=== PATIENT | female | born 1935 | race Caucasian/White ===

== ENCOUNTER 2017-05-06 15:07 | Inpatient (IN) | payer MEDICARE, BC ==
[~2017-05-06] VITALS: Ht 170.2 cm; Wt 78.2 kg
[~2017-05-06 15:07] MED LIST: ALBU8.5H3 INH; ANAS1TAB PO; ATOR20TA9 PO; BRIM5DRO3 EACHEYE; CEFD300C37 PO; CYAN10008 PO; DORZ10DR7 EACHEYE; DULERA INH; ESTA1TAB PO; EYE EACHEYE; FLUTICASONE INH; HYDR-3240 PO; HYDROCODONE PO; LACT1CAP40 PO; LATA2.5D3 EACHEYE; LEVO112T4 PO; LEVO25TA2 PO; LISI-167 PO; LORA10TA3 PO; METF10002 PO; MONT10TA9 PO; NITR50CA PO; ONDA4TAB7 PO; PREDNISOLONE EACHEYE; TIOT18CA INH; TIZA4CAP2 PO
[2017-05-06] MEDS ORDERED: SODIUM CHLORIDE FLUSH 10ML SYR IVF ONE (15:30)
[2017-05-06] MEDS ORDERED: SODIUM CHLORIDE 0.9% 1,000ML IVBOLUS ONE (15:30)
[2017-05-06] MEDS ORDERED: ALBUTEROL/IPRATROPIUM 2.5MG/0.5MG, 3 ML NPPB ONE (15:30)
[2017-05-06] MEDS ORDERED: HYDROcodone/APAP 5/325 TABLET PO ONE (16:00)
[2017-05-06] MEDS ORDERED: ALBUTEROL/IPRATROPIUM 2.5MG/0.5MG, 3 ML ONE (16:03)
[2017-05-06 16:04] LABS: ASPARTATE AMINO TRANSFERASE 19 U/L (15-37); BLOOD UREA NITROGEN 14 mg/dL (7-18)
[2017-05-06 16:10] LABS: IS PT STATUS REG ER OR PRE ER? YES
[2017-05-06] MEDS ORDERED: HYDROcodone/APAP 5/325 TABLET ONE (16:25)
[2017-05-06] MEDS ORDERED: ALBUTEROL SULFATE 2.5 MG/3 ML NPPB PRN (18:30)
[2017-05-06] MEDS ORDERED: methylPREDNISolone SOD SUCC 125 MG/2 ML IVPush ONE (18:30)
[2017-05-06] MEDS: methylPREDNISolone SOD SUCC 125 MG/2 ML IVPush SCH (18:30)
[2017-05-06] MEDS ORDERED: ASPIRIN 81 MG TABLET CHEW PO ONE (18:30)
[2017-05-06] MEDS ORDERED: NITROGLYCERIN 0.4 MG BOTTLE (25 TABS) SL PRN (19:00)
[2017-05-06] MEDS ORDERED: morphine SULFATE 10 MG/ML, 1ML IVPush PRN (19:00)
[2017-05-06] MEDS ORDERED: BISACODYL 10 MG SUPP PR PRN (19:00)
[2017-05-06] MEDS ORDERED: POLYETHYLENE GLYCOL 17 GM PACKET PO PRN (19:00)
[2017-05-06] MEDS ORDERED: ACETAMINOPHEN 325 MG TABLET PO PRN (19:00)
[2017-05-06] MEDS: ONDANSETRON 2MG/ML, 2ML IVPush PRN (20:21)
[2017-05-06] MEDS: AZITHROMYCIN 500 MG in SODIUM CHLORIDE 0.9% 250 ML IV SCH (20:43)
[2017-05-06] MEDS ORDERED: TEMPLATE NON-FORMULARY MED. (Dorzolamide Hcl/Timolol Maleat (Dorzolamide-Timolol Eye Drops EACHEYE SCH (21:00)
[2017-05-06] MEDS: LATANOPROST OPHTH 0.005%, 2.5ML EACHEYE SCH (21:00)
[2017-05-06] MEDS ORDERED: TEMPLATE NON-FORMULARY MED. (Brimonidine Tartrate** (Alphagan P**) 1 DROP(S)) EACHEYE SCH (21:00)
[2017-05-06 21:50] LABS: IS PT STATUS REG ER OR PRE ER? NO
[2017-05-06] MEDS: ATORVASTATIN 20 MG TABLET PO SCH (23:25)
[2017-05-06] MEDS: HEPARIN 5,000 UNITS/ML, 1ML SQ SCH (23:25)
[2017-05-06] MEDS: SODIUM CHLORIDE FLUSH 10ML SYR IVF SCH (23:26)
[2017-05-06 23:42] VITALS: BP 147/84
[2017-05-07] MEDS: ALBUTEROL/IPRATROPIUM 2.5MG/0.5MG, 3 ML NPPB SCH ×4 (00:15→20:50)
[2017-05-07 03:40] VITALS: BP 122/73
[2017-05-07 03:51] LABS: ASPARTATE AMINO TRANSFERASE 15 U/L (15-37); BLOOD UREA NITROGEN 12 mg/dL (7-18)
[2017-05-07 03:56] LABS: IS PT STATUS REG ER OR PRE ER? NO
[2017-05-07 08:51] VITALS: BP 142/77
[2017-05-07] MEDS ORDERED: REGADENOSON 0.4 MG/5 ML SYRINGE ONE (08:56)
[2017-05-07] MEDS ORDERED: IPRATROPIUM 0.5 MG/2.5 ML INHA NPPB SCH (09:00)
[2017-05-07] MEDS ORDERED: HYDROcodone/APAP 5/325 TABLET ONE (10:41)
[2017-05-07] MEDS: HEPARIN 5,000 UNITS/ML, 1ML SQ SCH ×2 (10:44→19:53)
[2017-05-07] MEDS: methylPREDNISolone SOD SUCC 125 MG/2 ML IVPush SCH ×2 (10:45→19:53)
[2017-05-07] MEDS: HYDROcodone/APAP 5/325 TABLET PO PRN ×2 (10:45→14:16)
[2017-05-07] MEDS: MONTELUKAST 10 MG TABLET PO SCH (10:45)
[2017-05-07] MEDS: LEVOTHYROXINE 112 MCG TABLET PO SCH (10:45)
[2017-05-07] MEDS: CYANOCOBALAMIN 1,000 MCG TABLET PO SCH (10:45)
[2017-05-07] MEDS: SENNA/DOCUSATE TABLET PO SCH (10:46)
[2017-05-07] MEDS: LISINOPRIL 10 MG TABLET PO SCH (10:46)
[2017-05-07] MEDS: NITROFURANTOIN 50 MG CAPSULE PO SCH (10:46)
[2017-05-07] MEDS: LORATADINE 10 MG TABLET PO SCH (10:46)
[2017-05-07] MEDS: ANASTROZOLE 1 MG TABLET PO SCH (10:49)
[2017-05-07] MEDS: ONDANSETRON 2MG/ML, 2ML IVPush PRN ×2 (10:56→19:11)
[2017-05-07] MEDS: SODIUM CHLORIDE FLUSH 10ML SYR IVF SCH ×2 (11:03→19:54)
[2017-05-07] MEDS: DULERA INH SCH (11:13)
[2017-05-07] MEDS: (Dorzolamide Hcl/Timolol Maleat (Dorzolamide-Timolol Eye Drops EACHEYE SCH ×2 (11:13→20:11)
[2017-05-07] MEDS: (Brimonidine Tartrate** (Alphagan P**) 1 DROP(S)) EACHEYE SCH ×2 (11:13→20:11)
[2017-05-07 14:27] VITALS: BP 108/64
[2017-05-07 18:51] VITALS: BP 142/79
[2017-05-07] MEDS: AZITHROMYCIN 500 MG in SODIUM CHLORIDE 0.9% 250 ML IV SCH (19:54)
[2017-05-07] MEDS: ATORVASTATIN 20 MG TABLET PO SCH (19:54)
[2017-05-07] MEDS: LATANOPROST OPHTH 0.005%, 2.5ML EACHEYE SCH (20:12)
[2017-05-07] MEDS ORDERED: DIPHENHYDRAMINE 25 MG CAPSULE PO PRN (22:30)
[2017-05-08] VITALS (7 sets, daily range): BP systolic 102–151; BP diastolic 61–78
[2017-05-08] MEDS: ONDANSETRON 2MG/ML, 2ML IVPush PRN ×2 (05:22→19:28)
[2017-05-08] MEDS: methylPREDNISolone SOD SUCC 125 MG/2 ML IVPush SCH (05:22)
[2017-05-08] MEDS: HEPARIN 5,000 UNITS/ML, 1ML SQ SCH ×3 (05:22→20:49)
[2017-05-08] MEDS: HYDROcodone/APAP 5/325 TABLET PO PRN ×2 (05:45→16:40)
[2017-05-08] MEDS: ALBUTEROL/IPRATROPIUM 2.5MG/0.5MG, 3 ML NPPB SCH ×3 (07:32→21:00)
[2017-05-08] MEDS ORDERED: KETOROLAC 30 MG/1 ML IVPush ONE (08:30)
[2017-05-08] MEDS ORDERED: METHOCARBAMOL 500 MG TABLET PO ONE (08:30)
[2017-05-08] MEDS: DULERA INH SCH (09:00)
[2017-05-08] MEDS: SENNA/DOCUSATE TABLET PO SCH (09:00)
[2017-05-08] MEDS: (Brimonidine Tartrate** (Alphagan P**) 1 DROP(S)) EACHEYE SCH ×2 (09:00→20:50)
[2017-05-08] MEDS: LEVOTHYROXINE 112 MCG TABLET PO SCH (10:44)
[2017-05-08] MEDS: CYANOCOBALAMIN 1,000 MCG TABLET PO SCH (10:44)
[2017-05-08] MEDS: LORATADINE 10 MG TABLET PO SCH (10:44)
[2017-05-08] MEDS: MONTELUKAST 10 MG TABLET PO SCH (10:45)
[2017-05-08] MEDS: SODIUM CHLORIDE FLUSH 10ML SYR IVF SCH ×2 (10:45→20:50)
[2017-05-08] MEDS: LISINOPRIL 10 MG TABLET PO SCH (10:45)
[2017-05-08] MEDS: NITROFURANTOIN 50 MG CAPSULE PO SCH (10:46)
[2017-05-08] MEDS: ANASTROZOLE 1 MG TABLET PO SCH (10:57)
[2017-05-08] MEDS: (Dorzolamide Hcl/Timolol Maleat (Dorzolamide-Timolol Eye Drops EACHEYE SCH ×2 (11:51→20:48)
[2017-05-08] MEDS: METHOCARBAMOL 750 MG TABLET PO PRN (19:38)
[2017-05-08] MEDS: AZITHROMYCIN 500 MG in SODIUM CHLORIDE 0.9% 250 ML IV SCH (20:48)
[2017-05-08] MEDS: LATANOPROST OPHTH 0.005%, 2.5ML EACHEYE SCH (20:49)
[2017-05-08] MEDS: ATORVASTATIN 20 MG TABLET PO SCH (20:49)
[2017-05-09 00:48] VITALS: BP 137/76
[2017-05-09] MEDS ORDERED: PNEUMOCOCCAL 23 VACCINE IM-VACC ONE (04:00)
[2017-05-09] MEDS: HEPARIN 5,000 UNITS/ML, 1ML SQ SCH ×2 (06:21→14:12)
[2017-05-09] MEDS: ALBUTEROL/IPRATROPIUM 2.5MG/0.5MG, 3 ML NPPB SCH (07:33)
[2017-05-09 07:58] VITALS: BP 169/96
[2017-05-09] MEDS: HYDROcodone/APAP 5/325 TABLET PO PRN (08:29)
[2017-05-09] MEDS: (Dorzolamide Hcl/Timolol Maleat (Dorzolamide-Timolol Eye Drops EACHEYE SCH (08:31)
[2017-05-09] MEDS: SODIUM CHLORIDE FLUSH 10ML SYR IVF SCH (08:33)
[2017-05-09] MEDS: DULERA INH SCH (08:33)
[2017-05-09] MEDS: MONTELUKAST 10 MG TABLET PO SCH (09:00)
[2017-05-09] MEDS: ANASTROZOLE 1 MG TABLET PO SCH ×2 (09:00→11:46)
[2017-05-09] MEDS: (Brimonidine Tartrate** (Alphagan P**) 1 DROP(S)) EACHEYE SCH (09:00)
[2017-05-09] MEDS: NITROFURANTOIN 50 MG CAPSULE PO SCH ×2 (09:00→11:46)
[2017-05-09] MEDS: LORATADINE 10 MG TABLET PO SCH (09:00)
[2017-05-09] MEDS: CYANOCOBALAMIN 1,000 MCG TABLET PO SCH (09:00)
[2017-05-09] MEDS: LISINOPRIL 10 MG TABLET PO SCH (09:00)
[2017-05-09] MEDS: LEVOTHYROXINE 112 MCG TABLET PO SCH (09:00)
[2017-05-09] MEDS: SENNA/DOCUSATE TABLET PO SCH (09:00)
[2017-05-09] MEDS: METHOCARBAMOL 750 MG TABLET PO PRN (12:08)
[2017-05-09 12:11] VITALS: BP 149/78
[2017-05-09] MEDS ORDERED: METH750T2 PO (13:57)
[2017-05-09] MEDS ORDERED: PRED10TA PO (13:57)
== END 2017-05-09 16:15 | disposition home or self-care (01) | DRG 190 ==
LOC: ED 15:51 → EDIP 17:14 → 5SO 19:04
PROVIDERS: ADMIT Internal Medicine; ATTEND Internal Medicine
DX: J44.1 Chronic obstructive pulmonary disease with (acute) exacerbation (principal); J18.9 Pneumonia, unspecified organism; J96.10 Chronic respiratory failure, unspecified whether with hypoxia or hypercapnia; H40.9 Unspecified glaucoma; E11.9 Type 2 diabetes mellitus without complications; E03.9 Hypothyroidism, unspecified; I10 Essential (primary) hypertension; I89.0 Lymphedema, not elsewhere classified; G56.03 Carpal tunnel syndrome, bilateral upper limbs; H53.8 Other visual disturbances; Z66 Do not resuscitate; Z79.84 Long term (current) use of oral hypoglycemic drugs; Z85.3 Personal history of malignant neoplasm of breast; Z90.13 Acquired absence of bilateral breasts and nipples; Z92.21 Personal history of antineoplastic chemotherapy; Z92.3 Personal history of irradiation; Z99.81 Dependence on supplemental oxygen; Z90.12 Acquired absence of left breast and nipple; Z90.710 Acquired absence of both cervix and uterus; Z90.49 Acquired absence of other specified parts of digestive tract; Z88.0 Allergy status to penicillin; R07.89 Other chest pain
CPT/HCPCS: 36415; 70450; 71010; 78452; 80053; 81003; 83036; 83880; 84484; 85025; 85379; 87205; 90732; 93005; 93017; 93970; 94640; 96360; J0456; J1644; J1885; J2405; J2785; J7620; A9502; C9898; J2270; J2930; J7030; J7050; J7512; Q0163

== ENCOUNTER 2018-06-29 16:18 | Inpatient (IN) | payer MEDICARE, BC ==
[~2018-06-29] VITALS: Ht 165.1 cm; Wt 68.0 kg
[~2018-06-29 16:18] MED LIST changes: -ALBU8.5H3 INH; +ALBU8.5H8 INH; +CHOL10003 PO; +CIPRO EYE; +COLE1TAB5 PO; +CYAN100072 PO; -CYAN10008 PO; +DORZOLAMIDE HCL; +LEVO125T5 PO; +LINA5TAB PO; +METH750T2 PO; +MOME13HF2 INH; +PRED10TA PO; +PREDNISOLONE
[2018-06-29] MEDS ORDERED: SODIUM CHLORIDE 0.9% 1,000 ML IV ONE (16:29)
[2018-06-29] MEDS ORDERED: SODIUM CHLORIDE FLUSH 10ML SYR IVF ONE (16:30)
[2018-06-29] MEDS ORDERED: ALBUTEROL/IPRATROPIUM 2.5MG/0.5MG, 3 ML NPPB ONE (16:30)
[2018-06-29 16:49] LABS: BASOPHILS # (AUTO) 0.04 x10^3/uL (0-0.1); BASOPHILS % (AUTO) 1 % (0-1); EOSINOPHILS # (AUTO) 0.04 x10^3/uL (0-0.4); EOSINOPHILS % (AUTO) 1 % (1-7); LYMPHOCYTES # (AUTO) 1.32 x10^3/uL (1-3.4); LYMPHOCYTES % (AUTO) 18 % (22-44); MD NO; MEAN CORPUSCULAR HEMOGLOBIN 29.4 pg (27.0-34.8); MEAN CORPUSCULAR HGB CONC 32.7 g/dL (32.4-35.8); MEAN PLATELET VOLUME 6.4 fL (7.4-10.4); MONOCYTES # (AUTO) 0.81 x10^3/uL (0.2-0.8); MONOCYTES % (AUTO) 11 % (2-9); NEUTROPHILS # (AUTO) 5.26 x10^3/uL (1.8-6.8); NEUTROPHILS % (AUTO) 70 % (42-75); PLATELET COUNT 276 x10^3/uL (130-400); RED BLOOD COUNT 3.87 x10^6/uL (3.82-5.3); RED CELL DISTRIBUTION WIDTH 13.9 % (9.6-15.2)
[2018-06-29] MEDS ORDERED: [UNRECOGNIZED DRUG - OTHER] INH (16:51)
[2018-06-29 17:02] LABS: ALANINE AMINOTRANSFERASE 17 U/L (12-78); ALBUMIN 3.5 g/dL (3.4-5.0); ANION GAP 6 mmol/L (5-15); CALCIUM 9.1 mg/dL (8.5-10.1); CHLORIDE 98 mmol/L (98-107)
[2018-06-29 17:06] LABS: ALKALINE PHOSPHATASE 82 U/L (45-117); BILIRUBIN,TOTAL 0.3 mg/dL (0.2-1.0); TOTAL PROTEIN 8.1 g/dL (6.4-8.2); TROPONIN I < 0.015 ng/mL (0.000-0.045)
[2018-06-29] MEDS ORDERED: OMNIPAQUE 350 MG/ML, 100ML BOTTLE ONE (17:10)
[2018-06-29 20:04] VITALS: BP 201/101
[2018-06-29 20:16] VITALS: BP 201/93
[2018-06-29] MEDS ORDERED: LABETALOL 5MG/ML, 20ML ONE (20:29)
[2018-06-29 20:30] VITALS: BP 188/90
[2018-06-29] MEDS ORDERED: ALBUTEROL SULFATE 2.5MG/0.5ML NPPB PRN (20:30)
[2018-06-29 20:36] LABS: INTERNATIONAL NORMALIZED RATIO 1.08 (0.93-1.1); PROTHROMBIN TIME 11.1 Seconds (9.6-11.5)
[2018-06-29 20:48] VITALS: BP 166/94
[2018-06-29 20:49] VITALS: BP 130/78
[2018-06-29] MEDS ORDERED: ENALAPRILAT 1.25 MG/ML, 2ML IVPush PRN (21:00)
[2018-06-29] MEDS ORDERED: LABETALOL 5MG/ML, 20ML IVPush ONE (21:00)
[2018-06-29] MEDS ORDERED: LABETALOL 5MG/ML, 20ML IVPush PRN (21:00)
[2018-06-29] MEDS ORDERED: ONDANSETRON 2MG/ML, 2ML IVPush PRN (21:00)
[2018-06-29] MEDS: ENOXAPARIN 30 MG/0.3 ML SQ SCH (21:00)
[2018-06-29] MEDS ORDERED: FUROSEMIDE 20 MG/2 ML IV ONE (23:00)
[2018-06-29] MEDS ORDERED: POTASSIUM CHLORIDE 20 MEQ TAB.ER.PRT PO ONE (23:00)
[2018-06-29] MEDS: ATORVASTATIN 20 MG TABLET PO SCH (23:15)
[2018-06-30] MEDS: LORazepam 2 MG/ML, 1ML IVPush PRN ×4 (00:48→21:20)
[2018-06-30 02:42] VITALS: BP 103/80
[2018-06-30 05:05] LABS: BASOPHILS # (AUTO) 0.04 x10^3/uL (0-0.1); BASOPHILS % (AUTO) 1 % (0-1); EOSINOPHILS # (AUTO) 0.01 x10^3/uL (0-0.4); EOSINOPHILS % (AUTO) 0 % (1-7); LYMPHOCYTES # (AUTO) 1.13 x10^3/uL (1-3.4); LYMPHOCYTES % (AUTO) 16 % (22-44); MD NO; MEAN CORPUSCULAR HEMOGLOBIN 29.9 pg (27.0-34.8); MEAN CORPUSCULAR HGB CONC 32.9 g/dL (32.4-35.8); MEAN CORPUSCULAR VOLUME 90.8 fL (80-100); MEAN PLATELET VOLUME 6.8 fL (7.4-10.4); MONOCYTES # (AUTO) 0.78 x10^3/uL (0.2-0.8); MONOCYTES % (AUTO) 11 % (2-9); NEUTROPHILS # (AUTO) 5.21 x10^3/uL (1.8-6.8); NEUTROPHILS % (AUTO) 73 % (42-75); PLATELET COUNT 257 x10^3/uL (130-400); RED BLOOD COUNT 3.74 x10^6/uL (3.82-5.3)
[2018-06-30 05:13] LABS: ANION GAP 4 mmol/L (5-15); CALCIUM 8.8 mg/dL (8.5-10.1); CHLORIDE 101 mmol/L (98-107)
[2018-06-30] MEDS: LEVOTHYROXINE 125 MCG TABLET PO SCH (05:57)
[2018-06-30 07:30] VITALS: BP 120/79
[2018-06-30] MEDS ORDERED: LIDOCAINE-MPF 2%, 2ML ONE (09:24)
[2018-06-30] MEDS: IPRATROPIUM 0.5 MG/2.5 ML INHA NPPB SCH ×2 (09:35→16:15)
[2018-06-30] MEDS ORDERED: ALBUTEROL/IPRATROPIUM 2.5MG/0.5MG, 3 ML ONE (09:35)
[2018-06-30] MEDS: ENOXAPARIN 30 MG/0.3 ML SQ SCH ×2 (12:26→21:08)
[2018-06-30] MEDS: CYANOCOBALAMIN 1,000 MCG TABLET PO SCH (12:27)
[2018-06-30] MEDS: LISINOPRIL 10 MG TABLET PO SCH (12:27)
[2018-06-30] MEDS: MONTELUKAST 10 MG TABLET PO SCH (12:27)
[2018-06-30] MEDS: LINAGLIPTIN 5 MG TAB PO SCH (12:27)
[2018-06-30] MEDS: CHOLECALCIFEROL 1,000 UNIT TABLET PO SCH (12:27)
[2018-06-30 14:00] VITALS: BP 120/72
[2018-06-30] MEDS: FLUTICASONE/VILANTEROL 200-25MCG/INH INH SCH (14:59)
[2018-06-30] MEDS: HYDROcodone/APAP 5/325 TABLET PO PRN (15:26)
[2018-06-30] MEDS: ONDANSETRON ODT 4 MG PO PRN (16:46)
[2018-06-30 17:00] VITALS: BP 117/74
[2018-06-30] MEDS ORDERED: morphine SULFATE/PF 0.5 MG/ML, 10ML IV PRN (17:30)
[2018-06-30] MEDS: ALBUTEROL/IPRATROPIUM 2.5MG/0.5MG, 3 ML NPPB SCH (18:13)
[2018-06-30] MEDS ORDERED: methylPREDNISolone SOD SUCC 125 MG/2 ML IVPush SCH (20:00)
[2018-06-30] MEDS: ATORVASTATIN 20 MG TABLET PO SCH (21:07)
[2018-07-01 04:00] VITALS: BP 110/53
[2018-07-01] MEDS: LEVOTHYROXINE 125 MCG TABLET PO SCH (05:40)
[2018-07-01] MEDS: ALBUTEROL/IPRATROPIUM 2.5MG/0.5MG, 3 ML NPPB SCH ×5 (06:58→23:00)
[2018-07-01] MEDS ORDERED: methylPREDNISolone SOD SUCC 125 MG/2 ML IVPush SCH (08:00)
[2018-07-01] MEDS: CHOLECALCIFEROL 1,000 UNIT TABLET PO SCH (08:48)
[2018-07-01] MEDS: MONTELUKAST 10 MG TABLET PO SCH (08:49)
[2018-07-01] MEDS: FLUTICASONE/VILANTEROL 200-25MCG/INH INH SCH (08:49)
[2018-07-01] MEDS: LISINOPRIL 10 MG TABLET PO SCH (08:49)
[2018-07-01] MEDS: CYANOCOBALAMIN 1,000 MCG TABLET PO SCH (08:49)
[2018-07-01] MEDS: LINAGLIPTIN 5 MG TAB PO SCH (08:49)
[2018-07-01] MEDS: ENOXAPARIN 30 MG/0.3 ML SQ SCH ×2 (08:50→20:33)
[2018-07-01] MEDS ORDERED: OMNIPAQUE 350 MG/ML, 100ML BOTTLE ONE (11:07)
[2018-07-01] MEDS: HYDROcodone/APAP 5/325 TABLET PO PRN (12:00)
[2018-07-01] MEDS: LORazepam 2 MG/ML, 1ML IVPush PRN (16:49)
[2018-07-01] MEDS: ATORVASTATIN 20 MG TABLET PO SCH (20:33)
[2018-07-02] MEDS: HYDROcodone/APAP 5/325 TABLET PO PRN ×3 (04:03→15:16)
[2018-07-02] MEDS: MORPHINE SULFATE 4 MG/ML, 1ML IVPush PRN ×3 (04:07→14:23)
[2018-07-02 04:46] VITALS: BP 126/51
[2018-07-02] MEDS: LEVOTHYROXINE 125 MCG TABLET PO SCH ×2 (05:57→19:22)
[2018-07-02] MEDS: ALBUTEROL/IPRATROPIUM 2.5MG/0.5MG, 3 ML NPPB SCH (07:53)
[2018-07-02] MEDS: ENOXAPARIN 30 MG/0.3 ML SQ SCH ×2 (09:00→19:22)
[2018-07-02] MEDS: CYANOCOBALAMIN 1,000 MCG TABLET PO SCH (09:00)
[2018-07-02] MEDS: FLUTICASONE/VILANTEROL 200-25MCG/INH INH SCH (09:00)
[2018-07-02] MEDS: CHOLECALCIFEROL 1,000 UNIT TABLET PO SCH (09:00)
[2018-07-02] MEDS: LINAGLIPTIN 5 MG TAB PO SCH (09:00)
[2018-07-02] MEDS: LISINOPRIL 10 MG TABLET PO SCH (09:00)
[2018-07-02] MEDS: MONTELUKAST 10 MG TABLET PO SCH (09:00)
[2018-07-02 10:00] VITALS: BP 108/69
[2018-07-02 13:09] VITALS: BP 99/66
[2018-07-02] MEDS ORDERED: ALBUTEROL/IPRATROPIUM 2.5MG/0.5MG, 3 ML NPPB PRN (15:00)
[2018-07-02] MEDS ORDERED: ONDANSETRON ODT 4 MG PO PRN (15:30)
[2018-07-02] MEDS: morphine SULFATE ORAL.CONC 20 MG/ML BC PRN ×3 (16:08→19:30)
[2018-07-02] MEDS: LORazepam 0.5MG TABLET PO PRN ×2 (17:37→19:35)
[2018-07-02] MEDS: ATORVASTATIN 20 MG TABLET PO SCH (19:21)
[2018-07-02 19:26] VITALS: BP 94/62
[2018-07-03 01:00] VITALS: BP 98/66
[2018-07-03 07:34] VITALS: BP 97/62
[2018-07-03] MEDS: ONDANSETRON ODT 4 MG PO PRN (08:13)
[2018-07-03] MEDS: morphine SULFATE ORAL.CONC 20 MG/ML BC PRN ×2 (08:13→09:24)
[2018-07-03] MEDS: LISINOPRIL 10 MG TABLET PO SCH (08:28)
[2018-07-03] MEDS: FLUTICASONE/VILANTEROL 200-25MCG/INH INH SCH (08:28)
[2018-07-03] MEDS: CYANOCOBALAMIN 1,000 MCG TABLET PO SCH (08:29)
[2018-07-03] MEDS: LINAGLIPTIN 5 MG TAB PO SCH (08:29)
[2018-07-03] MEDS: CHOLECALCIFEROL 1,000 UNIT TABLET PO SCH (08:29)
[2018-07-03] MEDS: ENOXAPARIN 30 MG/0.3 ML SQ SCH (08:29)
[2018-07-03] MEDS: MONTELUKAST 10 MG TABLET PO SCH (08:29)
[2018-07-03] MEDS ORDERED: LORazepam 2 MG/ML, 1ML IVPush PRN (09:30)
[2018-07-03] MEDS ORDERED: MORPHINE 30MG/30ML PCA.SYR IV PRN (11:30)
[2018-07-03] MEDS ORDERED: ATROPINE OPHTH SOLN 1%, 2ML BC PRN (14:00)
[2018-07-03] MEDS: LORazepam 2 MG/ML, 1ML IVPush SCH ×2 (14:03→18:00)
[2018-07-03] MEDS: LORazepam 2 MG/ML, 1ML IVPush PRN ×2 (16:32→17:42)
== END 2018-07-03 23:30 | disposition expired | DRG 180 ==
LOC: ED 19:13 → EDIP 19:35 → 3NW 19:37 → CCU 06-30 18:25 → 3NW 07-02 10:09
PROVIDERS: ADMIT Internal Medicine; ATTEND Internal Medicine
PROC: 0W9B3ZZ Drainage of Left Pleural Cavity, Percutaneous Approach (ICD-10-PCS; principal; 2018-06-30)
PROC: 5A09357 Assistance with Respiratory Ventilation, Less than 24 Consecutive Hours, Continuous Positive Airway Pressure (ICD-10-PCS; 2018-07-01)
DX: C78.00 Secondary malignant neoplasm of unspecified lung (principal); J96.21 Acute and chronic respiratory failure with hypoxia; J96.22 Acute and chronic respiratory failure with hypercapnia; J90 Pleural effusion, not elsewhere classified; C79.51 Secondary malignant neoplasm of bone; E87.2 Acidosis; I16.0 Hypertensive urgency; J44.9 Chronic obstructive pulmonary disease, unspecified; I10 Essential (primary) hypertension; H35.30 Unspecified macular degeneration; M48.00 Spinal stenosis, site unspecified; Z99.81 Dependence on supplemental oxygen; H40.9 Unspecified glaucoma; Z77.22 Contact with and (suspected) exposure to environmental tobacco smoke (acute) (chronic); E11.65 Type 2 diabetes mellitus with hyperglycemia; E89.0 Postprocedural hypothyroidism; E04.9 Nontoxic goiter, unspecified; Z66 Do not resuscitate; L98.9 Disorder of the skin and subcutaneous tissue, unspecified; K63.9 Disease of intestine, unspecified; Z51.5 Encounter for palliative care; E78.5 Hyperlipidemia, unspecified; R59.0 Localized enlarged lymph nodes; Z85.3 Personal history of malignant neoplasm of breast; Z74.01 Bed confinement status; Z90.13 Acquired absence of bilateral breasts and nipples; Z98.49 Cataract extraction status, unspecified eye; Z90.49 Acquired absence of other specified parts of digestive tract; Z90.710 Acquired absence of both cervix and uterus; Z80.0 Family history of malignant neoplasm of digestive organs; Z88.0 Allergy status to penicillin
CPT/HCPCS: 32555; 36415; 36600; 71045; 71275; 74177; 78306; 80048; 80053; 82803; 83735; 83880; 84100; 84484; 85025; 85610; 87081; 94640; 94660; 99285; J1650; J2270; J2405; J3490; J7611; J7620; J7644; Q0162; Q9967; A9503; C9898; J1940; J2060; J7030